=== PATIENT | female | born 1985 | race Caucasian/White ===

== ENCOUNTER 2017-05-26 08:42 | Day surgery (SDC) | payer BC ==
--- NOTE | 2017-05-26 11:19 | Operative Note ---
Colonoscopy ([facility]) Procedure date: 05/26/17 Date of : 81 Procedure:Colonoscopy Colonoscopy with cold biopsies Indications: Mrs. Mccauley is a 31-year-old female who is here for diagnostic colonoscopy. 2 weeks ago she developed abdominal pain and nausea after eating chicken. She developed lack of appetite. She had a CAT scan that showed wall thickening of the terminal ileum suspicious for terminal ileitis or inflammatory bowel disease. The patient reports no diarrhea, rectal bleeding or weight loss. The patient did receive antibiotics with Cipro and Flagyl. She also received Zofran. She has felt a little chilled but no fever. She reports no family history of Crohn's disease or inflammatory bowel disease. Performing Provider: Matthew Nguyễn MD Referrring Provider: Sylvester Barrera M.D. Sedation: Fentanyl 150 mg IV/Versed 9 mg IV Procedure: Prior to the procedure, a history and physical exam was performed, and patient medications and allergies were reviewed. The risks and benefits of the procedure and the sedation options and risks were discussed with the patient. All questions were answered and informed consent was obtained. Patient identification and proposed procedure were verified by the physician and the nurse. The patient was placed in a left lateral decubitus position. Throughout the procedure, the patient's blood pressure, pulse, and oxygen saturations were monitored continuously. Findings: On digital rectal examination there was normal rectal tone. There were no external hemorrhoids. The colonoscope was introduced through the anal canal to the rectum and advanced to the cecum. The ileocecal valve and appendiceal orifice were identified. The scope was advanced a short distance into the ileum which appeared grossly normal. Cold biopsies were taken from the ileum to rule out microscopic ileitis. The scope was then withdrawn into the colon. The cecum, ascending, transverse, descending, sigmoid and rectum were grossly normal. There was a single diminutive 2 mm polyp in the descending colon removed via cold biopsy. There were no other mucosal abnormalities identified. Upon retroflexion within the rectum there were minimal internal hemorrhoids. Impressions: 1. Diminutive descending polyp 2. Otherwise normal colonoscopy with intubation of the terminal ileum Recommendations: I will discuss the findings with the patient and family. The patient does not have any evidence of Crohn's disease or acute or chronic ileitis. I will follow up the biopsies. I do feel that the patient most likely had food poisoning or acute viral enteritis. The patient is clinically improved. Complications: None EBL (ml): 0 at 3163
[2017-05-26 13:47] VITALS: BP 139/80
== END 2017-05-26 12:20 | disposition home or self-care (01) ==
LOC: SDC 08:42
PROVIDERS: Internal Medicine Gastroenterology
PROC: 0DBB8ZX Excision of Ileum, Via Natural or Artificial Opening Endoscopic, Diagnostic (ICD-10-PCS; principal; 2017-05-26 10:00)
DX: R10.9 Unspecified abdominal pain (principal); K63.5 Polyp of colon